=== PATIENT | male | born 1945 | race Caucasian/White ===

== ENCOUNTER 2017-01-21 18:56 | Emergency (ER) | payer OTHER, MEDICARE ==
[~2017-01-21] VITALS: Ht 170.2 cm; Wt 93.0 kg
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
[2017-01-21 21:10] VITALS: BP 142/83
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
--- OUTSIDE RECORDS SUMMARY | 2017-01-31 05:21 | External Medical Summary Rpt | CCD ---
Demographics Preferred Language Spanish Marital Status Unknown Evangelical Affiliation Unknown Race Unknown Ethnic Group Unknown Author Author , SHEREE BENTLEY Address Unknown Phone Immunization No patient found.
--- OUTSIDE RECORDS SUMMARY | 2017-01-31 05:21 | External Medical Summary Rpt | CCD ---
Demographics Preferred Language Pashto Marital Status Unknown Latter Day Affiliation Unknown Race Unknown Ethnic Group Unknown Author Author , SHEREE BENTLEY Address Unknown Phone Immunization No patient found.
--- OUTSIDE RECORDS SUMMARY | 2017-01-31 05:21 | External Medical Summary Rpt | CCD ---
Author Author [employer] Organization [employer] Address Unknown Phone Unavailable Purpose Continuity of Care Document - through 2016
--- OUTSIDE RECORDS SUMMARY | 2017-01-31 05:21 | External Medical Summary Rpt | CCD ---
Author Author , SHEREE BENTLEY Address Unknown Phone [email or web address] Purpose Continuity of Care Document - through 2016
--- OUTSIDE RECORDS SUMMARY | 2017-01-31 05:21 | External Medical Summary Rpt | CCD ---
Author Author , SHEREE BENTLEY Address Unknown Phone [email or web address] Purpose Continuity of Care Document - through 2016
== END 2017-01-21 21:09 | disposition home or self-care (01) ==
LOC: ER 18:56
DX: S16.1XXA Strain of muscle, fascia and tendon at neck level, initial encounter (principal); S20.212A Contusion of left front wall of thorax, initial encounter; V89.2XXA Person injured in unspecified motor-vehicle accident, traffic, initial encounter; I10 Essential (primary) hypertension; E78.5 Hyperlipidemia, unspecified